=== PATIENT | male | born 1950 | race Caucasian/White ===

== ENCOUNTER 2020-11-20 18:19 | Emergency (ER) | payer SELFPAY ==
[~2020-11-20] VITALS: Ht 177.8 cm; Wt 87.0 kg
[2020-11-20 18:23] VITALS: BP 89/58
--- NOTE | 2020-11-20 18:37 | NUR ---
PT ARRIVED TO ED BY AMBULANCE FOR REPORTS OF FEELING WEAK, AND FULL BODY PAIN, ASSESSED IN TRIAGE. PT'S CURRENT BP 137/86.
--- NOTE | 2020-11-20 18:56 | NUR ---
REPORT FROM MAYE LARA. ASSUMED CARE
[2020-11-20 19:08] LABS: BASOPHILS % (AUTO) 0 % (0-1); EOSINOPHILS % (AUTO) 2 % (1-7); LYMPHOCYTES % (AUTO) 20 % (22-44); MD NO; MEAN CORPUSCULAR HEMOGLOBIN 32.3 pg (27.5-34.5); MEAN CORPUSCULAR HGB CONC 33.5 g/dL (33.2-36.2); MEAN PLATELET VOLUME 8.9 fL (7.4-10.4); MONOCYTES % (AUTO) 6 % (2-9); NEUTROPHILS % (AUTO) 72 % (42-75); PLATELET COUNT 187 x10^3/uL (130-400); RED BLOOD COUNT 3.87 x10^6/uL (4.38-5.82); RED CELL DISTRIBUTION WIDTH 15.6 % (9.4-14.8)
[2020-11-20 19:11] LABS: ALBUMIN 2.7 g/dL (3.4-5.0); ANION GAP 9 mmol/L (5-15); CALCIUM 7.8 mg/dL (8.5-10.1); CHLORIDE 109 mmol/L (98-107)
[2020-11-20 19:18] LABS: ALANINE AMINOTRANSFERASE 16 U/L (12-78); ALKALINE PHOSPHATASE 137 U/L (45-117); BILIRUBIN,TOTAL 0.3 mg/dL (0.2-1.0); CREATININE 0.59 mg/dL (0.7-1.3); TOTAL PROTEIN 8.4 g/dL (6.4-8.2); TROPONIN I 0.015 ng/mL (0.000-0.045)
[2020-11-20] MEDS ORDERED: POTASSIUM CHLORIDE 20 MEQ TAB.ER.PRT PO ONE (19:30)
== END 2020-11-20 20:31 | disposition home or self-care (01) ==
LOC: ED 20:26
DX: M19.90 Unspecified osteoarthritis, unspecified site (principal); R53.1 Weakness; M1A.9XX1 Chronic gout, unspecified, with tophus (tophi); E87.6 Hypokalemia; I48.91 Unspecified atrial fibrillation; R94.31 Abnormal electrocardiogram [ECG] [EKG]; R07.9 Chest pain, unspecified
CPT/HCPCS: 36415; 71045; 80053; 83880; 84484; 85025; 93005; 99285